=== PATIENT | male | born 1975 | race Caucasian/White ===

== ENCOUNTER 2017-10-12 22:54 | Emergency (ER) | payer OTHER ==
[2017-10-12] MEDS: Acetaminophen/oxyCODONE 325-5 MG Tab PO ONE (23:39)
--- NOTE | 2017-10-13 18:13 | CR ---
CLINICAL DATA: DEFORMITY. RIGHT WRIST, 2017: There is an impacted, comminuted intraarticular fracture through the distal radius with dorsal angulation of the distal fragments with respect to the proximal. There is a mildly displaced oblique fracture through the ulnar styloid. No other acute abnormalities. Job: [id number] MTDD
== END 2017-10-13 00:08 | disposition home or self-care (01) ==
LOC: LB.ED 22:54
DX: S52.571A Other intraarticular fracture of lower end of right radius, initial encounter for closed fracture (principal); S52.611A Displaced fracture of right ulna styloid process, initial encounter for closed fracture; Z91.09 Other allergy status, other than to drugs and biological substances; Z91.013 Allergy to seafood; W19.XXXA Unspecified fall, initial encounter
CPT/HCPCS: 29125; 73100-RT; 99284-25; A9270-GY